=== PATIENT | female | born 1990 | race Caucasian/White ===

== ENCOUNTER 2017-05-12 13:36 | Day surgery (SDC) | payer OTHER ==
[~2017-05-12] VITALS: Ht 157.5 cm; Wt 66.4 kg
[~2017-05-12 13:36] MED LIST: ACYC400 PO; CYCL10 PO; HYDACE5325 PO; NAPR550 PO; RXCYCL10 PO; RXHYD5325 PO; RXNAPNA550 PO; Verotin-Gr Cap1 EACH PO
[2017-05-12 14:17] LABS: BASOPHILS ABSOLUTE AUTO 0.05 K/mm3 (0.00-0.23); BASOPHILS PERCENT AUTO 1 % (0-2); EOSINOPHILS PERCENT AUTO 1 % (0-6); Hematocrit 37.1 % (33.0-51.0); Hemoglobin 12.8 g/dL (11.5-16.0); IMMATURE GRAN ABSOLUTE AUTO 0.03 K/mm3 (0.00-0.10); IMMATURE GRAN PERCENT AUTO 0 % (0-1); LYMPHOCYTES ABSOLUTE AUTO 2.56 K/mm3 (0.84-5.20); LYMPHOCYTES PERCENT AUTO 25 % (21-46); MONOCYTES ABSOLUTE AUTO 0.63 K/mm3 (0.16-1.47); MONOCYTES PERCENT AUTO 6 % (4-13); Mean Corpuscular HGB 32.1 pg (26.0-34.0); Mean Corpuscular HGB Conc 34.5 g/dL (31.5-36.5); Mean Corpuscular Volume 93 fL (80-100); Mean Platelet Volume 8.9 fL (9.1-12.4); NEUTROPHILS ABSOLUTE AUTO 6.94 K/mm3 (1.96-9.15); NEUTROPHILS PERCENT AUTO 67 % (41-73); Platelet Count 353 K/mm3 (150-400); RDW Coefficient Variation 13.3 % (11.7-14.2); RDW Standard Deviation 45.5 fL (35.1-46.3); Red Blood Cell Count 3.99 M/mm3 (3.80-5.20); White Blood Cell Count 10.31 K/mm3 (4.00-11.30)
== END 2017-05-12 16:24 | disposition home or self-care (01) ==
LOC: ORSCSDS 13:36
PROVIDERS: Obstetrics & Gynecology
PROC: 10A07Z6 Abortion of Products of Conception, Vacuum, Via Natural or Artificial Opening (ICD-10-PCS; principal; 2017-05-12 14:45)
DX: O02.1 Missed abortion (principal); Z87.891 Personal history of nicotine dependence
CPT/HCPCS: 85025; 88305; J0690; J1885; J2210; J2405; J3010; J7120

== ENCOUNTER 2018-11-02 12:34 | Observation (INO) | payer OTHER ==
[~2018-11-02] VITALS: Ht 157.5 cm; Wt 70.3 kg
[2018-11-02 13:49] LABS: Source, Urine Clean Catch
[2018-11-02 13:56] LABS: Bilirubin, Urine Neg (Neg); Blood, Urine 5+ (Neg); Glucose Qualitative, Urine Neg (Neg); Ketones, Urine Neg (Neg); Leukocyte Esterase, Urine 2+ (Neg); Nitrite, Urine Neg (Neg); Protein, Urine 3+ (Neg); Urobilinogen, Urine NORM (Normal)
[2018-11-02 14:11] LABS: Appearance, Urine Bloody (Clear); Color, Urine Red (P-Yellow)
[2018-11-02 14:12] LABS: Bacteria Few /hpf; Red Blood Cells, Urine TNTC /hpf (0-2); Squamous Epithelial Cells Few /hpf (Few)
[2018-11-02 14:46] LABS: BASOPHILS ABSOLUTE AUTO 0.06 K/mm3 (0.00-0.23); BASOPHILS PERCENT AUTO 0 % (0-2); EOSINOPHILS ABSOLUTE AUTO 0.04 K/mm3 (0.00-0.68); EOSINOPHILS PERCENT AUTO 0 % (0-6); Hematocrit 37.3 % (33.0-51.0); Hemoglobin 12.7 g/dL (11.5-16.0); IMMATURE GRAN ABSOLUTE AUTO 0.09 K/mm3 (0.00-0.10); IMMATURE GRAN PERCENT AUTO 1 % (0-1); LYMPHOCYTES PERCENT AUTO 19 % (21-46); MONOCYTES ABSOLUTE AUTO 0.92 K/mm3 (0.16-1.47); MONOCYTES PERCENT AUTO 6 % (4-13); Mean Corpuscular HGB 32.2 pg (26.0-34.0); Mean Corpuscular Volume 95 fL (80-100); Mean Platelet Volume 10.2 fL (9.1-12.4); NEUTROPHILS ABSOLUTE AUTO 10.95 K/mm3 (1.96-9.15); NEUTROPHILS PERCENT AUTO 74 % (41-73); Platelet Count 339 K/mm3 (150-400); RDW Coefficient Variation 13.4 % (11.7-14.2); RDW Standard Deviation 47.2 fL (35.1-46.3); Red Blood Cell Count 3.94 M/mm3 (3.80-5.20); White Blood Cell Count 14.86 K/mm3 (4.00-11.30)
[2018-11-02 15:16] LABS: Alanine Aminotransfer (ALT/SGP 24 U/L (12-78); Albumin/Globulin Ratio 0.8 (0.8-1.8); Alk Phos 125 U/L (50-136); Anion Gap 10 mmol/L (6-16); Aspartate Aminotrans (AST/SGOT 23 U/L (12-37); Bilirubin, Total 0.2 mg/dL (0.1-1.0); Blood Urea Nitrogen 8 mg/dL (8-24); Bun/Creatinine Ratio 14.3 (12.0-20.0); CO2, Blood 21 mmol/L (21-32); Calcium, Blood 8.8 mg/dL (8.5-10.1); Chloride, Blood 107 mmol/L (98-108); Creatinine, Blood 0.56 mg/dL (0.40-1.00); Glomerular Filtration Rate >60 (60-); Glucose, Blood 71 mg/dL (70-99); Potassium, Blood 3.5 mmol/L (3.5-5.5); Sodium, Blood 138 mmol/L (136-145)
--- NOTE | 2018-11-02 21:48 | NUR ---
Pt. called RN when she got up to bathroom, small amount of dark brown blood on pad. RN instructed pt to continue to let me know if it continues and to keep the pads so we can evaluate how much and what it looks like. One dime size drop of blood in toilet with urine noted.
--- NOTE | 2018-11-03 02:16 | NUR ---
Pt up to bathroom a few times throughout the night, denies any more bleeding or ucs. some cramping here and there but does not "feel the strong ones like she had earlier." She states that Benadryl seems to be helping better than the Ambien to sleep.
--- NOTE | 2018-11-03 08:43 | NUR ---
PT STATES SHE HAD SOME COFFEE AND HER HEADACHE IS GONE
--- NOTE | 2018-11-03 09:32 | NUR ---
DISCHARGE INSTRUCTIONS REVIEWED AND SIGNED. ALL QUESTIONS ANSWRED. PT TO BE DISCHARGED TO HOME ON BEDREST, PT UNDERSTANDS THIS.
== END 2018-11-03 09:34 | disposition home or self-care (01) ==
LOC: BC 12:34 → OBS 12:34 → BC 13:01 → OBS 13:01 → EDSTATUS 14:44 → BC 14:45
PROVIDERS: ADMIT Nurse Practitioner Obstetrics & Gynecology
DX: O46.93 Antepartum hemorrhage, unspecified, third trimester (principal); Z3A.34 34 weeks gestation of pregnancy; Z91.012 Allergy to eggs; Z87.891 Personal history of nicotine dependence
CPT/HCPCS: 59025; 80053; 81001; 85025; 87086; G0378; J7120; Q0163

== ENCOUNTER 2018-11-21 04:58 | Inpatient (IN) | payer OTHER ==
[~2018-11-21] VITALS: Ht 157.5 cm; Wt 73.6 kg
[2018-11-21] MEDS ORDERED: LABE100 PO (05:27)
[2018-11-21] MEDS ORDERED: ACYC800 PO (05:28)
[2018-11-21] MEDS ORDERED: PRENATAL TABLE1 EAC2 PO (05:28)
[2018-11-21 05:35] LABS: BASOPHILS ABSOLUTE AUTO 0.06 K/mm3 (0.00-0.23); BASOPHILS PERCENT AUTO 1 % (0-2); EOSINOPHILS ABSOLUTE AUTO 0.26 K/mm3 (0.00-0.68); EOSINOPHILS PERCENT AUTO 2 % (0-6); Hematocrit 36.2 % (33.0-51.0); Hemoglobin 12.1 g/dL (11.5-16.0); IMMATURE GRAN ABSOLUTE AUTO 0.05 K/mm3 (0.00-0.10); IMMATURE GRAN PERCENT AUTO 0 % (0-1); LYMPHOCYTES ABSOLUTE AUTO 2.84 K/mm3 (0.84-5.20); LYMPHOCYTES PERCENT AUTO 24 % (21-46); MONOCYTES ABSOLUTE AUTO 0.83 K/mm3 (0.16-1.47); MONOCYTES PERCENT AUTO 7 % (4-13); Mean Corpuscular HGB 31.4 pg (26.0-34.0); Mean Corpuscular HGB Conc 33.4 g/dL (31.5-36.5); Mean Corpuscular Volume 94 fL (80-100); Mean Platelet Volume 10.6 fL (9.1-12.4); NEUTROPHILS ABSOLUTE AUTO 7.63 K/mm3 (1.96-9.15); NEUTROPHILS PERCENT AUTO 66 % (41-73); Platelet Count 281 K/mm3 (150-400); RDW Coefficient Variation 13.9 % (11.7-14.2); RDW Standard Deviation 48.4 fL (35.1-46.3); Red Blood Cell Count 3.85 M/mm3 (3.80-5.20); White Blood Cell Count 11.67 K/mm3 (4.00-11.30)
--- NOTE | 2018-11-21 22:00 | NUR ---
ASSUMED CARE OF PT
[2018-11-22 06:07] LABS: BASOPHILS ABSOLUTE AUTO 0.07 K/mm3 (0.00-0.23); BASOPHILS PERCENT AUTO 1 % (0-2); EOSINOPHILS ABSOLUTE AUTO 0.26 K/mm3 (0.00-0.68); EOSINOPHILS PERCENT AUTO 2 % (0-6); Hematocrit 36.4 % (33.0-51.0); Hemoglobin 12.4 g/dL (11.5-16.0); IMMATURE GRAN ABSOLUTE AUTO 0.06 K/mm3 (0.00-0.10); IMMATURE GRAN PERCENT AUTO 1 % (0-1); LYMPHOCYTES ABSOLUTE AUTO 3.21 K/mm3 (0.84-5.20); LYMPHOCYTES PERCENT AUTO 29 % (21-46); MONOCYTES ABSOLUTE AUTO 0.93 K/mm3 (0.16-1.47); MONOCYTES PERCENT AUTO 8 % (4-13); Mean Corpuscular HGB 32.1 pg (26.0-34.0); Mean Corpuscular HGB Conc 34.1 g/dL (31.5-36.5); Mean Corpuscular Volume 94 fL (80-100); Mean Platelet Volume 10.2 fL (9.1-12.4); NEUTROPHILS ABSOLUTE AUTO 6.53 K/mm3 (1.96-9.15); NEUTROPHILS PERCENT AUTO 59 % (41-73); Platelet Count 268 K/mm3 (150-400); Red Blood Cell Count 3.86 M/mm3 (3.80-5.20); White Blood Cell Count 11.06 K/mm3 (4.00-11.30)
--- NOTE | 2018-11-22 16:42 | NUR ---
CONSULT. BABY IS NOW 24 HOURS OLD AND IS MORE INTERESTED IN FEEDING THIS LAST BF SESSION. MOM IS EXPERIECED WITH BF, HAS BEEN PUMPING TO BRING HER MILK IN QUICKER. BABY WAS STARTED ON FORMULA SNS AND CONTINUES WITH THIS DURING BF, SMALL AMOUNTS EACH FEEDING, 5-10CC. INSTRUCT IN CHANGES TO EXPECT DURING THE FIRST WEEK WITH BABY AND WITH FEEDINGS AND REFERRED TO BF BROCHURE FOR PHOTOS AND INFORMATION, AND INSTRUCT IN ENERGY CONSERVATION OF THE BABY. SHE IS LOVING WITH BABY AND WITH TODDLER. QUESTIONS ANSWERED. INSTRUCT IN HOW STRESS CAN AFFECT MILK SUPPLY, CONTINUE WITH GOOD WATER INTAKE, 4L/DAY, PNV, AND PUMPING IF SHE IS PLANNING TO RETURN TO WORK SOON.
--- NOTE | 2018-11-23 09:57 | NUR ---
DISCHARGE DISCHARGE TEACHING COMPLETED WITH PATIENT, PT VERBALIZES UNDERSTANDING AND DOES NOT HAVE ANY FURTHER QUESTIONS AT THIS TIME. DISCHARGED TO HOME AT 0955 IN CAR
--- NOTE | 2018-11-25 17:33 | NUR ---
PHONE CALL 11/25/18 LATE ENTRY I CALLED PT. AT 1530 AND SPOKE WITH A MALE ASKING IF I COULD DELAY PT. APPT. BY ONE HALF HOUR OR SO HE SAID HE WOULD GIVE THE MESSAGE TO THE MOM .
--- NOTE | 2018-11-25 17:44 | NUR ---
FU PHONE CALL I CALLED [phone] AND LEFT A MESSAGE FOR PT. ON MESSAGE MACHINE FOR PT. CALL. I CALLED SECOND NUMBER WHICH WAS [phone] ADN FOUND IT TO BE THE WRONG NUMBER.
--- NOTE | 2018-11-25 17:56 | NUR ---
PHONE CALL TO PT. I GOT A CORRECT PHONE NUMBER FOR PATIENT'S MOTHER. PT. REPORTS THAT HER BOY FRIEND TRIED TO WAKE HER UP BUT SHE JUST COULD NOT WAKE UP THEN HER BOYFRIEND LEFT. IOFFER TO STAY FOR A BIT IF SHE COULD MAKE IT. PT. HAS IS BREAST AND BOTTLE FEEDING EVERY 3-4 HOURS. 1- 1.5 OUNCES. BABY HAS HAD HAD 3 GOD VOIDS AND NO STOOLS. SHE STATES THAT THE BABY HAS A LITTLE YELLOWNESS IN HER CHEEKS OTHER LOPEZ IS FINE APPT. RESHCEDULED FOR WEDNESDAY WITH INSTRUCTIONS TO CALL FOR ANY CONCERNS. PT. TO INCREASE FREQ OF FEEDING TO Q 2-3 HOURS AND MONITOR I%0.
== END 2018-11-23 09:56 | disposition home or self-care (01) | DRG 807 ==
LOC: OBS 04:58 → BC 04:59 → OBS 05:08 → BC 05:10
PROVIDERS: ADMIT Nurse Practitioner Obstetrics & Gynecology
PROC: 10E0XZZ Delivery of Products of Conception, External Approach (ICD-10-PCS; principal; 2018-11-21)
PROC: 10907ZC Drainage of Amniotic Fluid, Therapeutic from Products of Conception, Via Natural or Artificial Opening (ICD-10-PCS; 2018-11-21)
PROC: 3E033VJ Introduction of Other Hormone into Peripheral Vein, Percutaneous Approach (ICD-10-PCS; 2018-11-21)
PROC: 3E0R3BZ Introduction of Anesthetic Agent into Spinal Canal, Percutaneous Approach (ICD-10-PCS; 2018-11-21)
DX: O14.04 Mild to moderate pre-eclampsia, complicating childbirth (principal); Z37.0 Single live birth; O99.324 Drug use complicating childbirth; F12.90 Cannabis use, unspecified, uncomplicated; Z3A.37 37 weeks gestation of pregnancy
CPT/HCPCS: 36415; 51702; 85025; 86900; 86901; J1885; J2001; J2590; J3010; J7120

== ENCOUNTER → 2020-02-19 | Outpatient (CLI) | payer OTHER ==
[~2020-02-19] MED LIST changes: +ACYC800 PO; +LABE100 PO; +PRENATAL TABLE1 EAC2 PO
[2020-02-23 04:10] LABS: CHLAMYDIA TRACHOMATIS, NAA Negative (Negative)
== END | disposition home or self-care (01) ==
LOC: LAB 16:30 → LAB SHORT 16:30
PROVIDERS: Family Medicine
DX: Z30.9 Encounter for contraceptive management, unspecified (principal)
CPT/HCPCS: 87491; 87591